=== PATIENT | female | born 1950 | race Caucasian/White ===

== ENCOUNTER 2016-10-08 08:58 | Day surgery (SDC) | payer MEDICARE, OTHER ==
--- NOTE | ~2016-10-08 | EGD ---
EGD REPORT [facility] [address] [address] NAME: JADE SHABAZZ : [birth year] STATUS : [facility]#: [id number] AGE: 66 ADM/REG DATE : 10/08/16 MR#: [id number] REPORT SERV DATE: 10/08/16 DICTATED BY: ESSIE PINTO DATE: 10/08/16 REPORT STATUS : Draft TRANSCRIBED BY: [facility] DATE: 10/08/16 Endoscopy Center Patient Name: Jade Shabazz Date of : 1950 Attending MD: ESSIE PINTO MD Procedure Date No Time: 10/08/2016 Procedure: Colonoscopy Indications: High risk colon cancer surveillance: Personal history of colonic polyps Referring MD: GILL LAINEZ MD Medicines: as per anesthesia Complications: No immediate complications. Procedure: Pre-Anesthesia Assessment: - ASA Grade Assessment: II - A patient with mild systemic disease. After I obtained informed consent, the scope was passed under direct vision. Throughout the procedure, the patient's blood pressure, pulse, and oxygen saturations were monitored continuously. The PCF [id number] was introduced through the anus and advanced to the cecum, identified by appendiceal orifice and ileocecal valve. The colonoscopy was somewhat difficult due to significant looping and a tortuous colon. The patient tolerated the procedure. The quality of the bowel preparation was fair. Findings: The perianal and digital rectal examinations were normal. A few small and large-mouthed diverticula were found in the sigmoid colon. Internal hemorrhoids were found during endoscopy and were mild. Impression: - Diverticulosis in the sigmoid colon. - Internal hemorrhoids. Recommendation: - Repeat colonoscopy in 5 years for surveillance. Procedure Code(s): --- Professional --- 56458, Colonoscopy, flexible, proximal to splenic flexure; diagnostic, with or without collection of specimen(s) by brushing or washing, with or without colon decompression (separate procedure) Diagnosis Code(s): --- Professional --- K64.8, Other hemorrhoids EGD REPORT [address] [address] NAME: JADE SHABAZZ : [birth year] STATUS : [facility]#: [id number] AGE: 66 ADM/REG DATE : 10/08/16 MR#: [id number] REPORT SERV DATE: 10/08/16 DICTATED BY: ESSIE PINTO. DATE: 10/08/16 REPORT STATUS : Draft TRANSCRIBED BY: [employer] DATE: 10/08/16 K57.30, Diverticulosis of large intestine without perforation or abscess without bleeding Z86.010, Personal history of colonic polyps CPT copyright 2013 [employer]. All rights reserved. The codes documented in this report are preliminary and upon causticiser review may be revised to meet current compliance requirements. ESSIE PINTO MD 10/08/2016 12:11 PM This report has been signed electronically. Number of Addenda: 0 Note Initiated On: 10/08/2016 11:34 AM Scope Withdrawal Time 0 hours 9 minutes [address] [place] [id number]
[~2016-10-08 08:58] MED LIST: EYE VITAMIN; FLONASE NAS; LEVOTHYROXIN25 MCG PO; MULTIPLE VIT PO; PROBIOTICS; PROSCAR5 PO; SPIRO50 PO; VITAMIN D31000 UNIT PO
== END 2016-10-08 23:59 | disposition home or self-care (01) ==
LOC: DMU 08:58
PROVIDERS: Internal Medicine Gastroenterology
PROC: 0DJD8ZZ Inspection of Lower Intestinal Tract, Via Natural or Artificial Opening Endoscopic (ICD-10-PCS; principal; 2016-10-08 10:30)
DX: Z12.11 Encounter for screening for malignant neoplasm of colon (principal); K64.8 Other hemorrhoids; K57.30 Diverticulosis of large intestine without perforation or abscess without bleeding; Z86.010 Personal history of colon polyps; E03.9 Hypothyroidism, unspecified; Z88.0 Allergy status to penicillin; Z88.8 Allergy status to other drugs, medicaments and biological substances; Z79.899 Other long term (current) drug therapy